=== PATIENT | male | born 1985 ===

== ENCOUNTER 2021-04-20 09:27 | Emergency (ER) | payer SELFPAY | END 2021-04-20 11:43 | disposition home or self-care (01) | LOC: JD.ED 09:27 | DX: R07.89 Other chest pain (principal); Z88.8 Allergy status to other drugs, medicaments and biological substances | CPT/HCPCS: 36415; 71045; 71045-26; 80053; 83735; 84484; 85025; 85379; 85610; 93005; 99285-25 ==